=== PATIENT | female | born 1995 | race Caucasian/White ===

== ENCOUNTER → 2016-11-23 | Day surgery (SDC) | payer OTHER ==
[2016-11-23 09:16] LABS: BASOPHIL 0.6 % (0-2); HCT 44.9 % (37.0-47.0); HGB 15.3 g/dl (12.5-16.0); LYMPHOCYTE 38.8 % (15-48); MCH 27.5 pg (25.0-31.0); MCHC 34.1 g/dL (32.0-36.0); MCV 80.6 fL (78.0-100.0); MONOCYTE 8.7 % (0-12); MPV 8.7 fL (6.0-9.5); NEUTROPHIL 49.9 % (41-80); PLT 384 K/uL (150-400); RBC 5.57 M/uL (4.20-5.40); RDW 14.5 % (11.5-14.0)
== END | disposition home or self-care (01) ==
LOC: FAS 08:38
PROVIDERS: Specialist
DX: L05.01 Pilonidal cyst with abscess (principal); F41.9 Anxiety disorder, unspecified; F32.9 Major depressive disorder, single episode, unspecified; K21.9 Gastro-esophageal reflux disease without esophagitis; E66.01 Morbid (severe) obesity due to excess calories; Z68.42 Body mass index [BMI] 45.0-49.9, adult; Z88.0 Allergy status to penicillin; Z91.013 Allergy to seafood; Z90.89 Acquired absence of other organs; Z79.899 Other long term (current) drug therapy; Z79.3 Long term (current) use of hormonal contraceptives
CPT/HCPCS: 36415; 80061; 82947; 84146; 84443; 84703; 85025; J2405; J2704; J2710; J3010